=== PATIENT | male | born 1990 | race Caucasian/White ===

== ENCOUNTER 2019-11-25 19:28 | Emergency (ER) | payer OTHER ==
--- NOTE | 2019-11-25 19:33 | PDOC ---
Rapid Medical Evaluation Chief Complaint: RX Refill Time Seen by Provider: 11/25/19 19:30 Medical Evaluation: 11/25/19 19:30 Pt presents for a medication refill Adderol. Pt has no other complaints. States he just moved from [place] and does not have a psychiatrist. Exam: NAD Orders: nothing Pt to proceed to the ER for further evaluation Discharge Disposition - Diagnosis Medication refill - Referrals - Patient Instructions - Post Discharge Activity
[2019-11-25 19:34] VITALS: BP 153/105; PULSE 119; TEMP 98.4; BMI 24.3
--- NOTE | 2019-11-25 20:06 | PDOC ---
History of Present Illness - General Chief Complaint: RX Refill Stated Complaint: RX REFILL Time Seen by Provider: 11/25/19 19:30 History Source: Patient Exam Limitations: No Limitations - History of Present Illness Initial Comments: 11/25/19 19:55 29-year-old male presents to the emergency room for request of his Adderall medication. Patient states recently relocated here from [place] this month and since moving back he has seen a psychiatrist and 2 days ago he could not find his Adderall which he states had 2-week supply left and so he notified the psychiatrist who initially prescribed to him in [place] but referred him to the ER since he was not going to refill his medication. Patient denies any other drug use excessive alcohol use or marijuana use. Patient has no symptoms of related behavior and states is unable to concentrate to his daily activity. Patient has no other complaints at this time. Is this a multiple visit Asthma Patient?: No Timing/Duration: 24 hours Severity: mild Associated Symptoms: reports: other Past History - Travel History Traveled outside of the country in the last 30 days: No Close contact w/someone who was outside of country & ill: No - Medical History Allergies/Adverse Reactions: Allergies Allergy/AdvReac Type Severity Reaction Status Date / Time No Known Allergies Allergy Verified 11/25/19 19:34 COPD: No Psychiatric Problems: Yes (adhd) Other medical history: ADHD - Psycho-Social/Smoking History Smoking History: Current some day smoker Information on smoking cessation initiated: No - Substance Abuse Hx (Audit-C & DAST Scrn) How often the patient has a drink containing alcohol: Monthly or less Score: In Men: 4 or > Positive; In Women: 3 or > Positive: 1 Screen Result (Pos requires Nsg. Audit-10AR): Negative Review of Systems - Review of Systems Able to Perform ROS?: No Is the patient limited [place]an proficient: No Constitutional: No: Symptoms Reported HEENTM: No: Symptoms Reported Respiratory: No: Symptoms reported Cardiac (ROS): No: Symptoms Reported Psychiatric: Yes: Anxiety, Other Hematologic/Lymphatic: No: Symptoms Reported *Physical Exam - Vital Signs Last Vital Signs Temp Pulse Resp BP Pulse Ox 98.4 F 119 H 18 153/105 H 100 11/25/19 19:30 11/25/19 19:30 11/25/19 19:30 11/25/19 19:30 11/25/19 19:30 - Physical Exam General Appearance: Yes: Nourished, Appropriately Dressed. No: Apparent Distress HEENT: positive: GAMA (4 mm beatrice) Cardiovascular: positive: Tachycardia Gastrointestinal/Abdominal: positive: Soft. negative: Tenderness Integumentary: positive: Normal Color, Warm, Moist Neurologic: positive: Motor Strength 5/5 (ambulatory) Medical Decision Making - Medical Decision Making 11/25/19 20:11 Chief complaint: Patient requesting Adderall refill. Exam: Patient appears slightly anxious but otherwise normal PE. Tachycardic at 115. Checked I stop and patient has no previous refills. Plan. Patient given 30 Er x5 days Discharge - Discharge Information Problems reviewed: Yes Clinical Impression/Diagnosis: Medication refill Condition: Good Disposition: HOME - Follow up/Referral - Patient Discharge Instructions Patient Printed Discharge Instructions: Attention Deficit Hyperactivity Disorder and Attention Deficit Disorder Additional Instructions: Please notify above psychiatrist for medical evaluation and medication management - Post Discharge Activity
== END 2019-11-25 20:22 | disposition home or self-care (01) ==
LOC: JERFT 19:28
DX: Z76.0 Encounter for issue of repeat prescription (principal)
CPT/HCPCS: 99281-25

== ENCOUNTER 2020-12-13 14:24 | Inpatient (IN) | payer OTHER ==
[2020-12-13 15:48] VITALS: BMI 25.1
[2020-12-13] MEDS ORDERED: MAGNESIUM HYDROX 2400MG/30ML ORAL SUSPENSION 30 ML CUP PO PRN (17:30)
[2020-12-13] MEDS ORDERED: IBUPROFEN 400 MG TABLET (FP) PO PRN (17:30)
[2020-12-13] MEDS ORDERED: METHOCARBAMOL 500 MG TABLET PO PRN (17:30)
[2020-12-13] MEDS ORDERED: MAGNESIUM CITRATE 300 ML BOTTLE PO PRN (17:30)
[2020-12-13] MEDS ORDERED: MENTHOL/PHENOL 1 EACH UD MM PRN (17:30)
[2020-12-13] MEDS ORDERED: ONDANSETRON *ODT* 4 MG TABLET SL PRN (17:30)
[2020-12-13] MEDS ORDERED: ACETAMINOPHEN 325 MG TABLET (FP) PO PRN ×2 (17:30)
[2020-12-13] MEDS ORDERED: MAG HYDROX/AL HYDROX/SIMETH 30 ML UNIT-DOSE CUP PO PRN (17:30)
[2020-12-13] MEDS ORDERED: BISMUTH SUBSALICYLATE 524 MG/30 ML PO PRN (17:30)
[2020-12-13] MEDS ORDERED: LORazepam 1 MG TABLET PO PRN (19:32)
[2020-12-13] MEDS: NICOTINE 21 MG/24 HOURS TOPICAL PATCH TD SCH (20:20)
[2020-12-13] MEDS: PRENATAL VITAMINS W/ FOLIC ACID TABLET (FP) PO SCH (20:20)
[2020-12-13] MEDS: hydrOXYzine PAMOATE 25 MG CAPSULE (FP) PO SCH ×2 (20:20→22:37)
[2020-12-13] MEDS ORDERED: MASKS NR ONE (20:47)
[2020-12-13] MEDS: THIAMINE HCL 100 MG TABLET (FP) PO SCH (22:37)
[2020-12-13] MEDS: LORazepam 2 MG TABLET PO SCH (22:37)
[2020-12-13] MEDS: MELATONIN 5 MG TABLETS PO SCH (22:37)
[2020-12-14] MEDS: hydrOXYzine PAMOATE 25 MG CAPSULE (FP) PO SCH (05:32)
[2020-12-14] MEDS: LORazepam 2 MG TABLET PO SCH ×4 (05:32→22:24)
[2020-12-14] MEDS: PRENATAL VITAMINS W/ FOLIC ACID TABLET (FP) PO SCH (10:28)
[2020-12-14] MEDS: NICOTINE 21 MG/24 HOURS TOPICAL PATCH TD SCH (10:29)
[2020-12-14] MEDS: NICOTINE 10 MG CARTRIDGE (INHALER) IH PRN (10:29)
[2020-12-14 12:36] LABS: HEMOGLOBIN 15.4 GM/dL (11.7-16.9); MCH 32.3 pg (25.7-33.7); MCHC 34.9 g/dl (32.0-35.9); MEAN CELL VOLUME 92.5 fl (80-96); MEAN PLT VOLUME 8.6 fl (7.5-11.1); PLATELET COUNT 206 10^3/uL (134-434); RBC 4.76 M/mm3 (4.00-5.60); RDW 13.1 % (11.9-15.9); WHITE BLOOD COUNT 4.6 K/mm3 (4.0-10.0)
[2020-12-14 12:41] LABS: CALCIUM 8.5 mg/dL (8.5-10.1)
[2020-12-14 12:42] LABS: ALBUMIN 3.6 g/dl (3.4-5.0); BLOOD UREA NITROGEN 9.3 mg/dL (7-18)
[2020-12-14 12:45] LABS: CREATININE 1.1 mg/dL (0.55-1.3)
[2020-12-14 12:46] LABS: BILIRUBIN,TOTAL 0.5 mg/dL (0.2-1)
[2020-12-14 12:47] LABS: TOT PROT 6.5 g/dl (6.4-8.2)
[2020-12-14] MEDS: hydrOXYzine PAMOATE 25 MG CAPSULE (FP) PO PRN (22:24)
[2020-12-14] MEDS: THIAMINE HCL 100 MG TABLET (FP) PO SCH (22:24)
[2020-12-14] MEDS: MELATONIN 5 MG TABLETS PO SCH (22:24)
[2020-12-15] MEDS: LORazepam 1 MG TABLET PO SCH ×4 (06:14→22:36)
[2020-12-15] MEDS: PRENATAL VITAMINS W/ FOLIC ACID TABLET (FP) PO SCH (10:53)
[2020-12-15] MEDS: NICOTINE 21 MG/24 HOURS TOPICAL PATCH TD SCH (10:53)
[2020-12-15] MEDS: NICOTINE 10 MG CARTRIDGE (INHALER) IH PRN (18:35)
[2020-12-15] MEDS: THIAMINE HCL 100 MG TABLET (FP) PO SCH (22:35)
[2020-12-15] MEDS: MELATONIN 5 MG TABLETS PO SCH (22:36)
[2020-12-16] MEDS ORDERED: LORazepam 0.5 MG TABLET PO PRN
[2020-12-16] MEDS: LORazepam 0.5 MG TABLET PO SCH ×4 (05:42→22:20)
[2020-12-16] MEDS: NICOTINE 21 MG/24 HOURS TOPICAL PATCH TD SCH (10:49)
[2020-12-16] MEDS: PRENATAL VITAMINS W/ FOLIC ACID TABLET (FP) PO SCH (10:50)
[2020-12-16] MEDS: NICOTINE 10 MG CARTRIDGE (INHALER) IH PRN (20:51)
[2020-12-16] MEDS: THIAMINE HCL 100 MG TABLET (FP) PO SCH (22:19)
[2020-12-16] MEDS: MELATONIN 5 MG TABLETS PO SCH (22:20)
[2020-12-16] MEDS: hydrOXYzine PAMOATE 25 MG CAPSULE (FP) PO PRN (22:20)
[2020-12-17] MEDS: hydrOXYzine PAMOATE 25 MG CAPSULE (FP) PO PRN (00:43)
[2020-12-17] MEDS ORDERED: LORazepam 0.5 MG TABLET PO ONE (05:00)
[2020-12-17] MEDS: NICOTINE 21 MG/24 HOURS TOPICAL PATCH TD SCH (10:25)
[2020-12-17] MEDS: PRENATAL VITAMINS W/ FOLIC ACID TABLET (FP) PO SCH (10:25)
[2020-12-17] MEDS: NICOTINE 10 MG CARTRIDGE (INHALER) IH PRN ×2 (10:26→15:56)
[2020-12-17 19:02] VITALS: BP 135/86; PULSE 106; TEMP 96.1
== END 2020-12-17 18:21 | disposition other institution (70) | DRG 775 ==
LOC: YASAS 14:24 → Y3N 17:37
PROVIDERS: ADMIT Allergy & Immunology; ATTEND Allergy & Immunology
PROC: HZ2ZZZZ Detoxification Services for Substance Abuse Treatment (ICD-10-PCS; principal; 2020-12-13)
DX: F10.230 Alcohol dependence with withdrawal, uncomplicated (principal); F13.20 Sedative, hypnotic or anxiolytic dependence, uncomplicated; F15.20 Other stimulant dependence, uncomplicated; F12.20 Cannabis dependence, uncomplicated; F17.210 Nicotine dependence, cigarettes, uncomplicated; F33.9 Major depressive disorder, recurrent, unspecified; F41.9 Anxiety disorder, unspecified; F90.9 Attention-deficit hyperactivity disorder, unspecified type; R74.01 Elevation of levels of liver transaminase levels; Z86.59 Personal history of other mental and behavioral disorders
CPT/HCPCS: 36415; 80053; 85027; 86780; C9803; U0003; U0005

== ENCOUNTER 2020-12-17 18:48 | Inpatient (IN) | payer OTHER ==
[2020-12-17 19:04] VITALS: BP 134/84; PULSE 97; TEMP 97.3
[2020-12-17] MEDS ORDERED: hydrOXYzine PAMOATE 25 MG CAPSULE (FP) PO PRN (19:25)
[2020-12-17] MEDS ORDERED: MAG HYDROX/AL HYDROX/SIMETH 30 ML UNIT-DOSE CUP PO PRN (19:25)
[2020-12-17] MEDS ORDERED: IBUPROFEN 400 MG TABLET (FP) PO PRN (19:25)
[2020-12-17] MEDS ORDERED: MAGNESIUM HYDROX 2400MG/30ML ORAL SUSPENSION 30 ML CUP PO PRN (19:25)
[2020-12-17] MEDS ORDERED: MAGNESIUM CITRATE 300 ML BOTTLE PO PRN (19:25)
[2020-12-17] MEDS ORDERED: ACETAMINOPHEN 325 MG TABLET (FP) PO PRN (19:25)
[2020-12-17] MEDS ORDERED: MENTHOL/PHENOL 1 EACH UD MM PRN (19:25)
[2020-12-17] MEDS ORDERED: guaiFENesin 200 MG/10 ML 10 ML UNIT-DOSE CUPS PO PRN (19:25)
[2020-12-17] MEDS ORDERED: P-EPHED 60MG/TRIPROLIDI 2.5MG TABLET PO PRN (19:25)
[2020-12-17] MEDS ORDERED: LOPERAMIDE HCL 2 MG CAPSULE PO PRN (19:25)
[2020-12-17] MEDS ORDERED: MELATONIN 5 MG TABLETS PO SCH (22:00)
[2020-12-17] MEDS ORDERED: THIAMINE HCL 100 MG TABLET (FP) PO SCH (22:00)
[2020-12-18] MEDS ORDERED: PRENATAL VITAMINS W/ FOLIC ACID TABLET (FP) PO SCH (10:00)
== END 2020-12-17 23:30 | disposition left against medical advice (07) | DRG 770 ==
LOC: YASAS 18:48 → Y5N 18:49
PROVIDERS: ADMIT Allergy & Immunology; ATTEND Allergy & Immunology
PROC: HZ42ZZZ Group Counseling for Substance Abuse Treatment, Cognitive-Behavioral (ICD-10-PCS; principal; 2020-12-17)
DX: F10.20 Alcohol dependence, uncomplicated (principal); F10.29 Alcohol dependence with unspecified alcohol-induced disorder

== ENCOUNTER 2020-12-18 00:22 | Emergency (ER) | payer OTHER ==
[2020-12-18 00:53] VITALS: BMI 26.7
[2020-12-18] MEDS ORDERED: LORazepam 2 MG TABLET PO ONE (03:16)
[2020-12-18 03:33] LABS: COCAINE, UR NEGATIVE (NEGATIVE); METHADONE, UR NEGATIVE (NEGATIVE); URINE AMPHETAMINES NEGATIVE (NEGATIVE); URINE BARBITURATES NEGATIVE (NEGATIVE); URINE BENZODIAZEPINES NEGATIVE (NEGATIVE)
[2020-12-18] MEDS ORDERED: LORazepam 1 MG TABLET ONE (03:33)
[2020-12-18 03:34] LABS: OPIATES, URI NEGATIVE (NEGATIVE); PHENCYCLIDINE,URINE NEGATIVE (NEGATIVE)
[2020-12-18 04:39] LABS: BASO % 0.8 % (0-2.0); EOS % 2.8 % (0-4.5); HEMATOCRIT 48.3 % (35.4-49); HEMOGLOBIN 17.2 GM/dL (11.7-16.9); LYMPH % 25.1 % (8-40); MCH 32.2 pg (25.7-33.7); MCHC 35.6 g/dl (32.0-35.9); MEAN CELL VOLUME 90.5 fl (80-96); MEAN PLT VOLUME 8.2 fl (7.5-11.1); MONO % 9.9 % (3.8-10.2); NEUT % 61.4 % (42.8-82.8); PLATELET COUNT 219 10^3/uL (134-434); RBC 5.34 M/mm3 (4.00-5.60); RDW 12.8 % (11.9-15.9); WHITE BLOOD COUNT 7.6 K/mm3 (4.0-10.0)
[2020-12-18 04:54] LABS: CHLORIDE 105 mmol/L (98-107); SODIUM 140 mmol/L (136-145)
[2020-12-18 04:56] LABS: CALCIUM 9.1 mg/dL (8.5-10.1)
[2020-12-18 04:57] LABS: ALBUMIN 4.3 g/dl (3.4-5.0); ANION GAP 4 MMOL/L (8-16); BLOOD UREA NITROGEN 17.3 mg/dL (7-18); CO2 31 mmol/L (21-32); GLUCOSE,RANDOM 85 mg/dL (74-106)
[2020-12-18 05:00] LABS: CREATININE 1.1 mg/dL (0.55-1.3); SGOT/AST 75 U/L (15-37); SGPT/ALT 142 U/L (13-61)
[2020-12-18 05:02] LABS: BILIRUBIN,TOTAL 0.3 mg/dL (0.2-1); TOT PROT 7.7 g/dl (6.4-8.2)
[2020-12-18 05:03] LABS: ALK PHOS 103 U/L (45-117)
[2020-12-18 06:52] VITALS: TEMP 98.4
[2020-12-18] MEDS ORDERED: busPIRone HCL 5 MG TABLET PO ONE (10:02)
[2020-12-18] MEDS ORDERED: busPIRone HCL 5 MG TABLET ONE (10:04)
[2020-12-18 10:23] VITALS: BP 119/81; PULSE 69
== END 2020-12-18 10:23 | disposition home or self-care (01) ==
LOC: JER 00:22
DX: F10.20 Alcohol dependence, uncomplicated (principal)
CPT/HCPCS: 36415; 80053; 80307; 82550; 82553; 85025; 93005; 93010; 99284-25; C9803; U0003; U0005